=== PATIENT | male | born 1990 | race African-American/Black ===

== ENCOUNTER 2018-03-26 11:53 | Observation (INO) | payer OTHER ==
[~2018-03-26 11:53] MED LIST: LIDOCAINE 2% INJ-PF (20 MG/ML) 2 ML AMPUL ONE; ONDANSETRON HCL INJ/PF 4 MG/2 ML SDV ONE
[2018-03-26] MEDS ORDERED: CLINDAMYCIN 600 MG/D5W RTU 600 MG/50 ML RTUPB IV SCH (14:00)
[2018-03-26] MEDS ORDERED: HYDROMORPHONE HCL INJ/PF 2 MG/ML AMPULE IV ONE ×2 (14:02→16:05)
[2018-03-26 14:41] LABS: ABSOLUTE LYMPHOCYTES (AUTO) 0.8 10^3/uL (0.5-4.7); ABSOLUTE NEUT (AUTO) 5.1 10^3/uL (1.7-8.2); BASOPHILS % (AUTO) 0.2 % (0-2); EOSINOPHILS % (AUTO) 0.2 % (0-6); HEMATOCRIT 37.7 % (37.9-51.0); HEMOGLOBIN 12.1 g/dL (13.5-17.0); MEAN CORPUSCULAR VOLUME 75 fl (80-97); MONOCYTES % (AUTO) 13.9 % (3-13); PLATELET COUNT 288 10^3/uL (150-450); RED BLOOD COUNT 5.02 10^6/uL (4.35-5.55); RED CELL DISTRIBUTION WIDTH 14.7 % (11.5-14.0); SEGMENTED NEUTROPHILS % (AUTO) 73.7 % (42-78); TOTAL CELLS COUNTED % (AUTO) 100 %; WHITE BLOOD COUNT 6.9 10^3/uL (4.0-10.5)
[2018-03-26 14:59] LABS: ALANINE AMINOTRANSFERASE 29 U/L (21-72); ALBUMIN 4.2 g/dL (3.5-5.0); ALKALINE PHOSPHATASE 65 U/L (38-126); ANION GAP 11 (5-19); ASPARTATE AMINO TRANSFERASE 23 U/L (17-59); BILIRUBIN,DIRECT 0.3 mg/dL (0.0-0.4); BILIRUBIN,TOTAL 0.4 mg/dL (0.2-1.3); BLOOD UREA NITROGEN 7 mg/dL (7-20); CALCIUM 9.5 mg/dL (8.4-10.2); CARBON DIOXIDE 32 mmol/L (22-30); CHLORIDE 100 mmol/L (98-107); GLUCOSE 78 mg/dL (75-110); POTASSIUM 3.3 mmol/L (3.6-5.0); SODIUM 143.4 mmol/L (137-145); TOTAL PROTEIN 7.2 g/dL (6.3-8.2)
--- NOTE | 2018-03-26 15:26 | RADIOLOGY REPORT (SQ) ---
EXAM DESCRIPTION: CT ABD/PELVIS WITH IV ONLY COMPLETED DATE/TIME: 03/26/2018 3:00 pm REASON FOR STUDY: right buttock pain, rectal pain, abscess? COMPARISON: None. TECHNIQUE: CT scan of the abdomen and pelvis performed using helical scanning technique with dynamic intravenous contrast injection. No oral contrast. Images reviewed with lung, soft tissue, and bone windows. Reconstructed coronal and sagittal MPR images reviewed. Delayed images for evaluation of the urinary system also acquired. All images stored on PACS. All CT scanners at this facility use dose modulation, iterative reconstruction, and/or weight based d osing when appropriate to reduce radiation dose to as low as reasonably achievable (ALARA). [facility]: Dose Right [facility]: CareDose [facility]: Dose Right [facility]: Teradose 4D [facility]: [employer] CONTRAST TYPE AND DOSE: contrast/concentration: Isovue 370.00 mg/ml; Total Contrast Delivered: 90.0 ml; Total Saline Delivered: 70.0 ml RENAL FUNCTION: None required. The patient is less than 50 years old. RADIATION DOSE: CT Rad equipment meets quality standard of care and radiation dose reduction techniq ues were employed. CTDIvol: 7.1 - 9.8 mGy. DLP: 949 mGy-cm.. LIMITATIONS: None. FINDINGS: There is a 3.7 cm AP x 3 cm transverse x 3 cm craniocaudad right perirectal abscess presen t. This is best shown on axial image 99, sagittal image 50 and coronal image 39. Minimal inflammati on is seen extending up into the right ischiorectal fossa fat. No bulky pelvic or inguinal lymph nodes. No free pelvic fluid. LOWER CHEST: No significant findings. No nodules or infiltrates. LIVER: Normal size. No masses. No dilated ducts. SPLEEN: Normal size. No focal lesions. PANCREAS: No masses. No significant calcifications. No adjacent inflammation or peripancreatic fluid collections. Pancreatic duct not dilated. GALLBLADDER: No identified stones by CT criteria. No inflammatory changes to suggest cholecystitis. ADRENAL GLANDS: No significant masses or asymmetry. RIGHT KIDNEY AND URETER: No solid masses. No significant calcifications. No hydronephrosis or hyd roureter. LEFT KIDNEY AND URETER: No solid masses. No significant calcifications. No hydronephrosis or hydr oureter. AORTA AND VESSELS: No aneurysm. No dissection. Renal arteries, SMA, celiac without stenosis. RETROPERITONEUM: No retroperitoneal adenopathy, hemorrhage or masses. BOWEL AND PERITONEAL CAVITY: No masses or inflammatory changes. No free fluid or peritoneal masses. APPENDIX: Normal. PELVIS: 3.7 x 3 x 3 cm right perirectal abscess. Bladder, prostate unremarkable. No free pelvic flu id. No pelvic adenopathy. ABDOMINAL WALL: No masses. No hernias. BONES: No significant or acute findings. OTHER: No other significant finding. IMPRESSION: 3.7 x 3 x 3 cm right perirectal abscess. TECHNICAL DOCUMENTATION: JOB ID: [id number] Quality ID # [id number]: Final reports with documentation of one or more dose reduction techniques (e.g., Au tomated exposure control, adjustment of the mA and/or kV according to patient size, use of iterative reconstruction technique) 2010 [employer]- All Rights Reserved Reading location - IP/workstation name: [email or web address]
[2018-03-26] MEDS ORDERED: NORMAL SALINE 1000 ML 1,000 ML IV PRN ×2 (15:48→21:41)
--- NOTE | 2018-03-26 15:55 | ER Document Report ---
ED GI Bleed / Rectal Pain - General Chief Complaint: Hemorrhoids Stated Complaint: POSSIBLE HEMORRHOIDS Time Seen by Provider: 03/26/18 13:09 Mode of Arrival: Ambulatory Information source: Patient Notes: Patient is a 28-year-old male who presents to the ER today for buttock pain times approximately 1 month. Patient states that he just took a trip through multiple states and was sitting in a car for long periods of time, so the buttock pain worsened. Patient states that he is here today because he can barely even walk due to the pain. Patient went to urgent care a few days ago and was told that he had a hemorrhoid. He has not been doing anything for this , was not given anything, just told to go to the emergency department if it worsened. Patient denies any history of hemorrhoids before. He denies any fevers or chills. He states that it does hurt to have a bowel movement, he has daily bowel movements that are normal, no diarrhea or hard stools. He has seen no blood in his stool. - Related Data Allergies/Adverse Reactions: No Known Allergies Allergy (Unverified 03/26/18 11:56) Past Medical History - General Information source: Patient - Social History Smoking Status: Current Some Day Smoker Frequency of alcohol use: None Drug Abuse: Marijuana Family History: Reviewed & Not Pertinent Patient has suicidal ideation: No Patient has homicidal ideation: No Pulmonary Medical History: Reports: Hx Asthma Renal/ Medical History: Denies: Hx Peritoneal Dialysis Review of Systems - Review of Systems Constitutional: No symptoms reported EENT: No symptoms reported Cardiovascular: No symptoms reported Respiratory: No symptoms reported Gastrointestinal: See HPI Genitourinary: No symptoms reported Male Genitourinary: No symptoms reported Musculoskeletal: No symptoms reported Skin: No symptoms reported Hematologic/Lymphatic: No symptoms reported Neurological/Psychological: No symptoms reported Physical Exam - Vital signs Vitals: Temp Pulse Resp BP Pulse Ox 98.9 F 93 16 107/59 L 95 03/26/18 12:05 03/26/18 12:05 03/26/18 12:05 03/26/18 12:05 03/26/18 12:05 - Notes Notes: PHYSICAL EXAMINATION: GENERAL: Uncomfortable appearing, lying on left side in position, but in no acute distress. HEAD: Atraumatic, normocephalic. EYES: Pupils equal round and reactive to light, extraocular movements intact, sclera anicteric, conjunctiva are normal. NECK: Normal range of motion, supple without lymphadenopathy LUNGS: CTAB and equal. No wheezes rales or rhonchi. HEART: Regular rate and rhythm without murmurs ABDOMEN: Soft, no tenderness. No guarding, no rebound BACK: no vertebral tenderness, normal ROM Rectal: No hemorrhoids noted, internal or external, probable perirectal abscess noted with induration to the right buttock near the anus, exquisitely tender GI/: no CVA tenderness EXTREMITIES: Normal range of motion, no pitting edema. No cyanosis. NEUROLOGICAL: Cranial nerves grossly intact. Normal sensory/motor exams. PSYCH: Normal mood, normal affect. SKIN: Warm, Dry, normal turgor, no rashes or lesions noted Course - Re-evaluation Re-evalutation: 03/26/18 16:17 CT of the abdomen and pelvis with IV contrast shows a perirectal abscess. Patient started on clindamycin, given IV fluids and pain medication, resting comfortably at this time. WBC normal, pt has 3.7 x 3 x 3 perirectal abscess, Dr. Nova accepts for OR at this time 03/29/18 16:33 - Vital Signs Vital signs: Temp Pulse Resp BP Pulse Ox 98.2 F 79 12 107/59 L 97 03/27/18 12:00 03/27/18 12:00 03/27/18 12:00 03/27/18 12:00 03/27/18 12:00 - Laboratory Result Diagrams: 03/27/18 06:13 03/27/18 06:13 Laboratory results interpreted by me: 03/26/18 03/26/18 14:00 14:00 Hgb 12.1 L Hct 37.7 L MCV 75 L MCH 24.0 L RDW 14.7 H Lymphocytes % 12.0 L Monocytes % 13.9 H Potassium 3.3 L Carbon Dioxide 32 H Discharge - Discharge Clinical Impression: Haylie-rectal abscess Condition: Stable Disposition: ADMITTED INPATIENT Admitting Provider: Surgicalist Adam nova Unit Admitted: OR
[2018-03-26] MEDS ORDERED: CEFOXITIN 1 GM/D5W RTU 50 ML IV SCH (16:00)
--- NOTE | 2018-03-26 16:09 | PDOC H&P ---
History of Present Illness Patient complains of: right perirectal abscess History of Present Illness: DIANA PLAZA is a 27 year old male with a one week hx of right perianal pain for [address] scan of the pelvis has been done and it reveals a right perirectal abscess measuring approximately 3 cm in diameter. The patient has a hx of chronic, well controlled myelocytic leukemia and he takes 1 tab of chemotherapeutic agent each day. Past Medical History Pulmonary Medical History: Reports: Asthma Social History Smoking Status: Current Some Day Smoker Family History Family History: Malignancy - granmother Parental Family History Reviewed: No Children Family History Reviewed: No Sibling(s) Family History Reviewed.: No Medication/Allergy Allergies/Adverse Reactions: No Known Allergies Allergy (Unverified 03/26/18 11:56) Physical Exam Vital Signs: Temp Pulse Resp BP Pulse Ox 98.9 F 93 16 107/59 L 95 03/26/18 12:05 03/26/18 12:05 03/26/18 12:05 03/26/18 12:05 03/26/18 12:05 Intake & Output 03/25/18 03/26/18 03/27/18 06:59 06:59 06:59 Weight 83.9 kg General appearance: PRESENT: no acute distress, cooperative Head exam: PRESENT: atraumatic Eye exam: PRESENT: EOMI Mouth exam: PRESENT: neck supple Respiratory exam: PRESENT: clear to auscultation gaye Cardiovascular exam: PRESENT: RRR GI/Abdominal exam: PRESENT: soft Rectal exam: PRESENT: other - tender right perianal mass Results Laboratory Results: 03/26/18 14:00 03/26/18 14:00 03/26/18 03/26/18 14:00 14:00 WBC 6.9 RBC 5.02 Hgb 12.1 L Hct 37.7 L MCV 75 L MCH 24.0 L MCHC 32.0 RDW 14.7 H Plt Count 288 Seg Neutrophils % 73.7 Lymphocytes % 12.0 L Monocytes % 13.9 H Eosinophils % 0.2 Basophils % 0.2 Absolute Neutrophils 5.1 Absolute Lymphocytes 0.8 Absolute Monocytes 1.0 Absolute Eosinophils 0.0 Absolute Basophils 0.0 Sodium 143.4 Potassium 3.3 L Chloride 100 Carbon Dioxide 32 H Anion Gap 11 BUN 7 Creatinine 1.02 Est GFR ( Amer) > 60 Est GFR (Non-Af Amer) > 60 Glucose 78 Calcium 9.5 Total Bilirubin 0.4 AST 23 ALT 29 Alkaline Phosphatase 65 Total Protein 7.2 Albumin 4.2 Impressions: Abdomen/Pelvis CT 03/26/18 13:10 IMPRESSION: 3.7 x 3 x 3 cm right perirectal abscess. Assessment & Plan - Diagnosis (1) Haylie-rectal abscess Is this a current diagnosis for this admission?: Yes - Plan Summary Plan Summary: A/ right perianal pain, nausea x 1 week tender area in the right perianum CT scan of the pelvis significant or right perirtectal abscess P/ I&D of right perirectal abscess Clinda/Mefoxin abx Replace K with 40 mEq IVPB Agressive IV hydration
[2018-03-26] MEDS ORDERED: NORMAL SALINE 1000 ML 1,000 ML IV ONE (16:15)
[2018-03-26 16:28] LABS: APPEARANCE,URINE CLEAR; BILIRUBIN,URINE NEGATIVE (NEGATIVE); COLOR,URINE YELLOW; GLUCOSE, URINE NEGATIVE (NEGATIVE); KETONES,URINE NEGATIVE (NEGATIVE); LEUKOCYTE ESTERASE,URINE NEGATIVE (NEGATIVE); NITRITE,URINE NEGATIVE (NEGATIVE); PROTEIN,URINE NEGATIVE (NEGATIVE); URINE SPECIFIC GRAVITY 1.013; UROBILINOGEN,URINE NEGATIVE mg/dL (<2.0)
[2018-03-26] MEDS: POTASSI CL 20 MEQ/50 ML RIDER 20 MEQ/50 ML RTUPB IV SCH ×2 (17:02→23:13)
[2018-03-26] MEDS ORDERED: DEXTROSE 5% IV SCH (18:00)
[2018-03-26] MEDS ORDERED: WATER IV SCH (18:00)
[2018-03-26] MEDS ORDERED: CEFOXITIN SODIUM IV SCH (18:00)
[2018-03-26] MEDS ORDERED: ONDANSETRON 4 MG TAB.RAPDIS ONE (19:22)
[2018-03-26] MEDS ORDERED: FENTANYL CITRATE INJ/PF 250 MCG/5 ML AMPULE ONE (19:30)
[2018-03-26] MEDS ORDERED: MIDAZOLAM 2 MG/2 ML INJ ONE (19:56)
[2018-03-26] MEDS ORDERED: EPHEDRINE SULFATE INJ 50 MG/1 ML AMPULE ONE (19:57)
[2018-03-26] MEDS ORDERED: PROPOFOL INJ 200 MG/20 ML VIAL IV ONE (19:57)
[2018-03-26] MEDS ORDERED: DIPHENHYDRAMINE HCL 50 MG/ML VIAL IV PRN (20:43)
[2018-03-26] MEDS ORDERED: ONDANSETRON HCL INJ/PF 4 MG/2 ML SDV IV PRN ×2 (20:43→21:42)
[2018-03-26] MEDS ORDERED: MEPERIDINE HCL/PF INJ 25 MG/1 ML DISP.SYRIN IV PRN (20:43)
[2018-03-26] MEDS ORDERED: PROMETHAZINE HCL INJ 25 MG/1 ML VIAL IV PRN (20:43)
[2018-03-26] MEDS ORDERED: FENTANYL CITRATE INJ/PF 100 MCG/2 ML AMPUL IV PRN ×3 (20:43)
[2018-03-26] MEDS: FENTANYL CITRATE INJ/PF 100 MCG/2 ML AMPUL ONE ×2 (21:31→21:44)
--- NOTE | 2018-03-26 21:33 | Operative Report ---
Nonrecallable Operative Report DATE OF SURGERY: 03/26/18 PREOPERATIVE DIAGNOSIS: right extrasphincteric perirectal abscess POSTOPERATIVE DIAGNOSIS: same OPERATION: rigid proctosigmoidoscopy. I&D perirectal abscess. rectal fistulotomy SURGEON: ANDREIA KISER ANESTHESIA: GA TISSUE REMOVED OR ALTERED: n/a COMPLICATIONS: none ESTIMATED BLOOD LOSS: < 15 mL INTRAOPERATIVE FINDINGS: large right, extrasphincteric perirectal abscess PROCEDURE: see dictation
[2018-03-26] MEDS ORDERED: MORPHINE SULFATE 10 MG/ML INJ IV PRN (21:43)
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
[2018-03-27] MEDS: FAMOTIDINE INJ/PF 20 MG/2 ML SDV IV SCH ×2 (00:13→09:02)
[2018-03-27] MEDS: MORPHINE SULFATE 10 MG/ML INJ IV PRN ×5 (00:15→06:34)
[2018-03-27] MEDS ORDERED: MORPHINE SULFATE 10 MG/ML INJ IV PRN (00:16)
[2018-03-27] MEDS ORDERED: CEFOXITIN INJ 1 GM VIAL ONE (02:27)
[2018-03-27] MEDS: CEFOXITIN SODIUM 2 GM in NORMAL SALINE 100 ML IV SCH ×2 (03:00→09:00)
[2018-03-27 06:32] LABS: HEMOGLOBIN 11.6 g/dL (13.5-17.0); MEAN CORPUSCULAR HEMOGLOBIN 23.9 pg (27.0-33.4); MEAN CORPUSCULAR HGB CONC 32.2 g/dL (32.0-36.0); MEAN CORPUSCULAR VOLUME 74 fl (80-97); PLATELET COUNT 254 10^3/uL (150-450); RED BLOOD COUNT 4.84 10^6/uL (4.35-5.55); RED CELL DISTRIBUTION WIDTH 14.8 % (11.5-14.0); WHITE BLOOD COUNT 8.9 10^3/uL (4.0-10.5)
[2018-03-27 06:44] LABS: ANION GAP 12 (5-19); BLOOD UREA NITROGEN 6 mg/dL (7-20); CALCIUM 9.3 mg/dL (8.4-10.2); CARBON DIOXIDE 27 mmol/L (22-30); CHLORIDE 108 mmol/L (98-107); GLUCOSE 111 mg/dL (75-110); SODIUM 146.5 mmol/L (137-145)
[2018-03-27 06:52] LABS: POTASSIUM 4.5 mmol/L (3.6-5.0)
[2018-03-27] MEDS ORDERED: TRAMADOL HCL 50 MG TABLET PO PRN (08:26)
[2018-03-27] MEDS ORDERED: DOCUSATE SODIUM 100 MG CAPSULE PO SCH (10:00)
[2018-03-27] MEDS ORDERED: ENOXAPARIN SODIUM INJ 40 MG/0.4 ML DISP.SYRIN SUBCUT SCH (10:00)
[2018-03-27 13:21] VITALS: BP 107/59
--- NOTE | 2018-03-27 13:27 | PDOC PROGRESS REPORT ---
Subjective Progress Note for:: 03/27/18 Subjective:: c/o perirectal incisional pain Reason For Visit: PERIRECTAL ABSCESS Physical Exam Vital Signs: Temp Pulse Resp BP Pulse Ox 98.2 F 79 12 122/65 97 03/27/18 11:52 03/27/18 11:52 03/27/18 11:52 03/27/18 11:52 03/27/18 11:52 Intake & Output 03/26/18 03/27/18 03/28/18 06:59 06:59 06:59 Intake Total 3420 236 Output Total 3570 800 Balance -150 -564 Weight 87.4 kg General appearance: PRESENT: no acute distress, cooperative Rectal exam: PRESENT: other - soft right perianal area, [place] drain in place, minimal drainage no odor Results Laboratory Results: 03/27/18 06:13 03/27/18 06:13 03/27/18 03/27/18 06:13 06:13 WBC 8.9 RBC 4.84 Hgb 11.6 L Hct 36.0 L MCV 74 L MCH 23.9 L MCHC 32.2 RDW 14.8 H Plt Count 254 Sodium 146.5 H Potassium 4.5 D Chloride 108 H Carbon Dioxide 27 Anion Gap 12 BUN 6 L Creatinine 0.81 Est GFR ( Amer) > 60 Est GFR (Non-Af Amer) > 60 Glucose 111 H Calcium 9.3 Impressions: Abdomen/Pelvis CT 03/26/18 13:10 IMPRESSION: 3.7 x 3 x 3 cm right perirectal abscess. Assessment & Plan - Diagnosis (1) Haylie-rectal abscess Is this a current diagnosis for this admission?: Yes (2) Perirectal abscess Is this a current diagnosis for this admission?: Yes - Plan Summary Plan Summary: A/ POD#1 after drainage of perirectal abscess and fistulotomy VSS, AF Blood work WNL PE routine postop P/ Home today resume diet, meds, activities return to work in 2 weeks sitz bath 3 times a day shower only until wound is closed and drain is out [place] 5/325 po q6 hours as needed for pain for 2 days only, then Tylenol and Aleve over the counter as needed folr pain Cipro 500 mg po BID x 10 days Flagyl 500 mg po TID x 10 days Follow-up with General Surgery office within 1 week with JUAN M Pool No rectal manipulations (suppositories, temperature probe, etc)
--- NOTE | 2018-03-28 03:35 | DISCHARGE SUMMARY E ---
Discharge Summary NAME: DIANA PLAZA : 1990 AGE: 27Y ADMITTED: 03/26/2018 DISCHARGED: 03/27/2018 FINAL DIAGNOSIS: Perirectal abscess, extrasphincteric. PROCEDURE: On 03/26 the patient underwent incision and drainage of perirectal abscess, rigid proctosigmoidoscopy, and rectal fistulotomy. COMPLICATION: None. HOSPITAL COURSE: This is a healthy 27-year-old male with a history of chronic myelocytic leukemia on daily oral immunosuppressant therapy who presented to the Emergency Room with pain of the right buttock with swelling. His blood work was within normal limits. A CAT scan was done, revealing a large extrasphincteric perirectal abscess. The patient underwent surgery the same evening. He underwent incision and drainage of the abscess, rigid proctosigmoidoscopy, fistulotomy, and placement of Jade drain. The procedure was well tolerated. His postop course was unremarkable. His vital signs remained stable. His white blood cell count the following day was normal. The patient was tolerating p.o. well. He had a sitz bath. Physical exam was unremarkable with decreased swelling of the right buttock and minimal drainage. DISCHARGE ORDERS: The patient was discharged to home on March 27. He was given a followup appointment in the surgery clinic within a week. He was given Cipro 500 mg p.o. twice a day and Flagyl 500 mg p.o. 3 times a day for 10 days. Instructions for sitz bath 3 times a day, shower only. No bath until the wound is closed and drain removed. Snyder 5/325 one p.o. q. 6 hours p.r.n. pain for 2 days, #8, no refills. He was instructed to take Tylenol or Aleve afterwards. He was instructed to resume his medications, regular diet, activities as tolerated. Return to work 2 weeks after his surgery. DICTATING PHYSICIAN: ANDREIA KISER M.D. [id number] PHY#: [id number] ID: [id number] JOB#: [id number] ACCT: [id number] cc:Nigel LOPEZ MD, M.D. [facility], > [facility]
== END 2018-03-27 14:33 | disposition home or self-care (01) ==
LOC: ER 11:53 → EH 16:20 → INTOOBSV 16:20 → 3W 22:26
PROVIDERS: ATTEND Surgery
PROC: 0DJD8ZZ Inspection of Lower Intestinal Tract, Via Natural or Artificial Opening Endoscopic (ICD-10-PCS; 2018-03-26)
PROC: 0D9P8ZX Drainage of Rectum, Via Natural or Artificial Opening Endoscopic, Diagnostic (ICD-10-PCS; principal; 2018-03-26 18:15)
DX: K61.1 Rectal abscess (principal); C92.10 Chronic myeloid leukemia, BCR/ABL-positive, not having achieved remission; F17.200 Nicotine dependence, unspecified, uncomplicated; F12.10 Cannabis abuse, uncomplicated; Z79.899 Other long term (current) drug therapy
CPT/HCPCS: 99284; 96375; 96365; 36415 ×2; 87040; 87070; 87205; 85025; 85027; 87075; 87077; 80048; 80053; 81001; 74177; 46060; 45300; J2250; J0694 ×2; S0119; J3010 ×2; J2270 ×2; J1170; J2405; J3480; J7030; J2704; J3490; 902

== ENCOUNTER 2018-04-02 17:27 | Emergency (ER) | payer OTHER ==
[2018-04-02 17:34] VITALS: BP 134/98
[2018-04-02] MEDS ORDERED: HYDROMORPHONE HCL INJ/PF 2 MG/ML AMPULE IV ONE (18:55)
[2018-04-02] MEDS ORDERED: ONDANSETRON 4 MG TAB.RAPDIS PO ONE (18:55)
--- NOTE | 2018-04-02 18:59 | ER Document Report ---
ED GI Bleed / Rectal Pain - General Chief Complaint: Rectal Pain Stated Complaint: RECTAL PAIN Time Seen by Provider: 04/02/18 18:18 Mode of Arrival: Ambulatory Information source: Patient TRAVEL OUTSIDE OF THE [place] IN LAST 30 DAYS: No - HPI Patient complains to provider of: Rectal pain Notes: Patient is here with complaints of right-sided rectal pain. The patient was here a week ago was diagnosed with a right-sided perirectal abscess. He was taken to surgery had an I&D performed and had a Jade drain placed. He followed up in the office and had the drain removed. He states that he seemed to be doing well over the last few days he feels like the pain has gotten worse and that the area seems to be getting larger. He denies fever. He denies nausea, vomiting, diarrhea. No abdominal pain. He denies any dysuria or hematuria. No rash. He denies any chest pain or shortness of breath. Patient does have a history of CML, he currently takes an oral chemo medication, but states that his disease is under control. He denies any other complaints at this time. He is currently taking Cipro and Flagyl. - Related Data Allergies/Adverse Reactions: No Known Allergies Allergy (Verified 04/02/18 17:28) Past Medical History - Social History Smoking Status: Never Smoker Chew tobacco use (# tins/day): No Frequency of alcohol use: None Drug Abuse: None Family History: Reviewed & Not Pertinent Patient has suicidal ideation: No Patient has homicidal ideation: No Pulmonary Medical History: Reports: Hx Asthma Renal/ Medical History: Denies: Hx Peritoneal Dialysis Psychiatric Medical History: Reports: Hx Depression Review of Systems - Review of Systems -: Yes All other systems reviewed and negative Physical Exam - Vital signs Vitals: Temp Pulse Resp BP Pulse Ox 98.6 F 86 16 134/98 H 98 04/02/18 17:33 04/02/18 17:33 04/02/18 17:33 04/02/18 17:33 04/02/18 17:33 - Notes Notes: GENERAL: alert, cooperative, nontoxic, no distress. HEAD: normocephalic, atraumatic EYES: conjunctiva pink without discharge, no external redness or swelling. EARS: no external swelling, no external redness NOSE: atraumatic, no external swelling MOUTH/THROAT: mucous membranes moist and pink, posterior pharynx without erythema, swelling, exudate. No trismus or drooling. NECK: soft, supple, full range of motion, no meningismus. CHEST: no distress, lungs clear and equal throughout. No wheezing, rales, rhonchi. CARDIAC: regular rate and rhythm, no murmur, normal capillary refill, normal pulses. No peripheral edema noted. ABDOMEN: Soft, mild tenderness to palpation of the right lower quadrant. No rebound tenderness or guarding. BACK: full range of motion, no CVA tenderness. EXTREMITIES: full range of motion of all extremities. No redness, no swelling. NEURO: alert and oriented x 3, no focal deficits, full range of motion of all extremities. PYSCH: appropriate mood, affect. Patient is cooperative. SKIN: pink, warm, dry, no rash. RECTAL: Indurated abscess to the right perirectal area. There is tenderness at the entrance of the rectum, but not tenderness deep. There is no active drainage at this time. Normal rectal tone. No significant surrounding cellulitis. Course - Re-evaluation Re-evalutation: 04/02/18 20:42 Patient is noted to have a small 7 x 2 mm right-sided perianal abscess on CT scan. White count is unremarkable. I have left a message with the operating room nurse who is currently in the middle of the procedure with Dr. Banerjee the surgeon is rn oncology research at this time. She will pass the message on to him. I will await his return phone call or visit to the emergency department to evaluate the patient. 04/02/18 22:07 Patient is nontoxic-appearing with stable vitals. Patient is here with complaints of right perirectal pain. He was seen here a week ago and was diagnosed with a right-sided perirectal abscess. He seen by surgery and had an I&D and a drain placed. He was seen in the clinic on Thursday. The drain was removed. Is currently on Cipro and Flagyl. He came in today because he was concerned that it was getting worse because it seemed to feel like it was getting larger and was more painful. He is out of his pain medication. He denies any fevers. He does have a history of chronic leukemia and is currently on a daily oral chemotherapeutic medication. He states that his leukemia is under control. He has had no fevers. No vomiting. He did have some mild right -sided abdominal tenderness was noted to have a right perirectal abscess on physical exam. Lab work is unremarkable. Is noted to have a slight elevation in his LFTs. This is very nonspecific at this time. Bilirubin is normal. CT the abdomen and pelvis with IV contrast shows a small perirectal abscess with no other acute abnormalities or complications. Patient was seen and evaluated by Dr. Banerjee of surgery. States that the patient does not require surgical intervention at this time. He recommends that he continues taking his antibiotics and that he does sits baths. He states that the patient will be seen in the clinic again on Thursday. He would like me to write him a prescription for pain medication to go home with until he is seen and evaluated by the surgeons on Thursday. He was instructed to follow-up sooner if he develops worsening pain, high fever, persistent vomiting, increased swelling, or has any further concerns. The patient is noted to have elevated blood pressure during today's emergency department visit. The patient was informed of this finding. The patient was instructed that this may be related to pre-hypertension and requires further evaluation with a primary care provider. The patient has no hypertensive symptoms at this time. The patient's emergency department workup and current diagnosis were explained to the patient and or family. Follow-up instructions were provided. Medications if prescribed were discussed. Instructions for when to return to the emergency department including specific worrisome symptoms were discussed with the patient and/or family. - Vital Signs Vital signs: Temp Pulse Resp BP Pulse Ox 98.6 F 86 16 134/98 H 98 04/02/18 17:33 04/02/18 17:33 04/02/18 17:33 04/02/18 17:33 04/02/18 17:33 - Laboratory Result Diagrams: 04/02/18 19:13 04/02/18 19:13 Laboratory results interpreted by me: 04/02/18 04/02/18 19:13 19:13 Hgb 12.7 L MCV 75 L MCH 23.8 L MCHC 31.8 L RDW 15.0 H AST 112 H ALT 86 H - Diagnostic Test Radiology reviewed: Image reviewed, Reports reviewed - CT of the abdomen and pelvis with IV contrast shows a small right-sided perirectal abscess with no other acute abnormality. Discharge - Discharge Clinical Impression: Perirectal abscess Condition: Stable Disposition: HOME, SELF-CARE Instructions: Abscess (PENDING SALE TO [facility]) Additional Instructions: Take medication as prescribed. Continue taking her Cipro and Flagyl. Do sitz baths 4 times a day. Follow-up with the surgery clinic on Thursday as scheduled. Follow-up sooner for increasing pain, fever, swelling, numbness, tingling, weakness, any further concerns. Your blood pressure was elevated during today's visit. Have this rechecked with your doctor. The medication you were prescribed today may cause drowsiness. Do not drive or operate heavy machinery while taking this medication. Prescriptions: Oxycodone HCl/Acetaminophen [Percocet 5-325 mg Tablet] 1 tab PO Q8H PRN #10 tablet PRN Reason: Forms: Elevated Blood Pressure, Smoking Cessation Education Referrals: [facility] [Provider Group] - Follow up as needed
[2018-04-02 19:33] LABS: ABSOLUTE BASOPHILS # (AUTO) 0.1 10^3/uL (0.0-0.2); ABSOLUTE EOSINOPHILS # (AUTO) 0.3 10^3/uL (0.0-0.6); ABSOLUTE LYMPHOCYTES (AUTO) 1.6 10^3/uL (0.5-4.7); ABSOLUTE MONOCYTES (AUTO) 0.5 10^3/uL (0.1-1.4); ABSOLUTE NEUT (AUTO) 3.1 10^3/uL (1.7-8.2); BASOPHILS % (AUTO) 0.9 % (0-2); EOSINOPHILS % (AUTO) 4.5 % (0-6); HEMOGLOBIN 12.7 g/dL (13.5-17.0); LYMPHOCYTES % (AUTO) 28.8 % (13-45); MEAN CORPUSCULAR HEMOGLOBIN 23.8 pg (27.0-33.4); MEAN CORPUSCULAR HGB CONC 31.8 g/dL (32.0-36.0); MEAN CORPUSCULAR VOLUME 75 fl (80-97); MONOCYTES % (AUTO) 9.7 % (3-13); PLATELET COUNT 396 10^3/uL (150-450); RED BLOOD COUNT 5.34 10^6/uL (4.35-5.55); SEGMENTED NEUTROPHILS % (AUTO) 56.1 % (42-78); TOTAL CELLS COUNTED % (AUTO) 100 %; WHITE BLOOD COUNT 5.6 10^3/uL (4.0-10.5)
[2018-04-02 19:57] LABS: ALANINE AMINOTRANSFERASE 86 U/L (21-72); ALBUMIN 4.3 g/dL (3.5-5.0); ALKALINE PHOSPHATASE 62 U/L (38-126); ANION GAP 12 (5-19); ASPARTATE AMINO TRANSFERASE 112 U/L (17-59); BILIRUBIN,DIRECT 0.3 mg/dL (0.0-0.4); BILIRUBIN,TOTAL 0.3 mg/dL (0.2-1.3); BLOOD UREA NITROGEN 11 mg/dL (7-20); CALCIUM 9.4 mg/dL (8.4-10.2); CARBON DIOXIDE 29 mmol/L (22-30); CHLORIDE 103 mmol/L (98-107); GLUCOSE 87 mg/dL (75-110); POTASSIUM 4.7 mmol/L (3.6-5.0); SODIUM 144.3 mmol/L (137-145); TOTAL PROTEIN 7.2 g/dL (6.3-8.2)
--- NOTE | 2018-04-02 20:36 | RADIOLOGY REPORT (SQ) ---
EXAM DESCRIPTION: CT ABD/PELVIS WITH IV ONLY COMPLETED DATE/TIME: 04/02/2018 8:21 pm REASON FOR STUDY: rectal abscess, increased pain, rlq tenderness COMPARISON: None. TECHNIQUE: CT scan of the abdomen and pelvis performed using helical scanning technique with dynamic intravenous contrast injection. No oral contrast. Images reviewed with lung, soft tissue, and bone windows. Reconstructed coronal and sagittal MPR images reviewed. Delayed images for evaluation of the urinary system also acquired. All images stored on PACS. All CT scanners at this facility use dose modulation, iterative reconstruction, and/or weight based d osing when appropriate to reduce radiation dose to as low as reasonably achievable (ALARA). [facility]: Dose Right [facility]: CareDose [facility]: Dose Right [facility]: Teradose 4D [facility]: [email or web address] CONTRAST TYPE AND DOSE: contrast/concentration: Isovue 370.00 mg/ml; Total Contrast Delivered: 95.0 ml; Total Saline Delivered: 45.0 ml RENAL FUNCTION: None required. The patient is less than 50 years old. RADIATION DOSE: CT Rad equipment meets quality standard of care and radiation dose reduction techniq ues were employed. CTDIvol: 6.8 - 9.7 mGy. DLP: 937 mGy-cm.. LIMITATIONS: None. FINDINGS: LOWER CHEST: No significant findings. No nodules or infiltrates. LIVER: Normal size. No masses. No dilated ducts. SPLEEN: Normal size. No focal lesions. PANCREAS: No masses. No significant calcifications. No adjacent inflammation or peripancreatic fluid collections. Pancreatic duct not dilated. GALLBLADDER: No identified stones by CT criteria. No inflammatory changes to suggest cholecystitis. ADRENAL GLANDS: No significant masses or asymmetry. RIGHT KIDNEY AND URETER: No solid masses. No significant calcifications. No hydronephrosis or hyd roureter. LEFT KIDNEY AND URETER: No solid masses. No significant calcifications. No hydronephrosis or hydr oureter. AORTA AND VESSELS: No aneurysm. No dissection. Renal arteries, SMA, celiac without stenosis. RETROPERITONEUM: No retroperitoneal adenopathy, hemorrhage or masses. BOWEL AND PERITONEAL CAVITY: 7.6 x 2.8 mm soft tissue mass adjacent to the anus on the right with ninfa tral low density. Compatible with small perianal abscess. APPENDIX: Not visualized. PELVIS: No mass. No free fluid. Normal bladder. ABDOMINAL WALL: No masses. No hernias. BONES: No significant or acute findings. OTHER: No other significant finding. IMPRESSION: Small right perianal abscess. TECHNICAL DOCUMENTATION: JOB ID: [id number] Quality ID # [id number]: Final reports with documentation of one or more dose reduction techniques (e.g., Au tomated exposure control, adjustment of the mA and/or kV according to patient size, use of iterative reconstruction technique) 2010 [employer]- All Rights Reserved Reading location - IP/workstation name: [email or web address]
--- NOTE | 2018-04-02 22:04 | PDOC CONSULTATION ---
History of Present Illness Admission Date/PCP: 04/02/18 Patient complains of: Right joseph-anal pains History of Present Illness: DIANA PLAZA is a 28 year old male who had an I&D of right joseph-anal abscess done by Dr Nova a week ago. Pt was seen in the surgical clinic 2 days ago. He is on Cipro and Flagyl and has another appointment date at the surgical clinic on April 06. He is on Chemo therapy for CML. Past 2 days Joseph- anal pains was worse though claims maybe due to the heat since he does not have air conditioning..No fever nor chills. Past Medical History Pulmonary Medical History: Reports: Asthma Psychiatric Medical History: Reports: Depression Hematology History Note: Has CML on Chemotherapy. Past Surgical History Past Surgical History: Reports: Other - I&D of right joseph-anal abscess 03/26/18 Dr Nova Social History Smoking Status: Never Smoker Frequency of Alcohol Use: Rare Hx Recreational Drug Use: No Drugs: None Hx Prescription Drug Abuse: No Family History Family History: Reviewed & Not Pertinent Parental Family History Reviewed: Yes Children Family History Reviewed: No Sibling(s) Family History Reviewed.: No Medication/Allergy Home Medications: Dextroamphetamine/Amphetamine [Adderall Xr 30 mg Capsule] 30 mg PO QAM 03/26/18 Ciprofloxacin HCl [Cipro 500 mg Tablet] 500 mg PO BID #20 tablet 03/27/18 Docusate Sodium [Colace 100 mg Capsule] 100 mg PO BID capsule 03/27/18 Hydrocodone/Acetaminophen [[place] 5-325 mg Tablet] 1 tab PO Q6 PRN #8 tablet Imatinib Mesylate 400 mg PO DAILY 03/27/18 Metronidazole [Flagyl 500 mg Tablet] 500 mg PO TID #30 tablet 03/27/18 Allergies/Adverse Reactions: No Known Allergies Allergy (Verified 04/02/18 17:28) Review of Systems Constitutional: PRESENT: other - no fever/chills Cardiovascular: PRESENT: other - no chest pains/cough Gastrointestinal: PRESENT: other - no abdominal pains Genitourinary: PRESENT: other - no dysuria Neurological: PRESENT: other - no seizures Hematologic/Lymphatic: PRESENT: other - no easy bruising Physical Exam Vital Signs: Temp Pulse Resp BP Pulse Ox 98.6 F 86 16 134/98 H 98 04/02/18 17:33 04/02/18 17:33 04/02/18 17:33 04/02/18 17:33 04/02/18 17:33 Intake & Output 04/01/18 04/02/18 04/03/18 06:59 06:59 06:59 Weight 88.451 kg General appearance: PRESENT: no acute distress Head exam: PRESENT: atraumatic Eye exam: PRESENT: conjunctiva pink Mouth exam: PRESENT: moist Neck exam: PRESENT: full ROM Respiratory exam: PRESENT: clear to auscultation gaye Cardiovascular exam: PRESENT: RRR Pulses: PRESENT: normal radial pulses Vascular exam: PRESENT: normal capillary refill GI/Abdominal exam: PRESENT: soft Rectal exam: PRESENT: other - Has an induration right joseph-anal area at the I&D site but no fluctuation or discharge to the I&D site. This is tender Extremities exam: PRESENT: full ROM Musculoskeletal exam: PRESENT: ambulatory Neurological exam: PRESENT: alert, oriented to person, oriented to place, oriented to time, oriented to situation Psychiatric exam: PRESENT: appropriate affect Skin exam: PRESENT: normal color, warm Results Laboratory Results: 04/02/18 19:13 04/02/18 19:13 04/02/18 04/02/18 19:13 19:13 WBC 5.6 RBC 5.34 Hgb 12.7 L Hct 40.0 MCV 75 L MCH 23.8 L MCHC 31.8 L RDW 15.0 H Plt Count 396 Seg Neutrophils % 56.1 Lymphocytes % 28.8 Monocytes % 9.7 Eosinophils % 4.5 Basophils % 0.9 Absolute Neutrophils 3.1 Absolute Lymphocytes 1.6 Absolute Monocytes 0.5 Absolute Eosinophils 0.3 Absolute Basophils 0.1 Sodium 144.3 Potassium 4.7 Chloride 103 Carbon Dioxide 29 Anion Gap 12 BUN 11 Creatinine 0.87 Est GFR ( Amer) > 60 Est GFR (Non-Af Amer) > 60 Glucose 87 Calcium 9.4 Total Bilirubin 0.3 AST 112 H ALT 86 H Alkaline Phosphatase 62 Total Protein 7.2 Albumin 4.3 Impressions: Abdomen/Pelvis CT 04/02/18 19:00 IMPRESSION: Small right perianal abscess. Assessment & Plan - Diagnosis (1) Post I&D right joseph-anal abscess Is this a current diagnosis for this admission?: Yes - Time Time Spent: 30 to 50 Minutes - Plan Summary Plan Summary: Continue Cipro and Flagyl Start Hot Sitz baths Prescribe Percocet 1 q8 hrs prn pain Continue F/U at surgical clinic 04/06/18 or come back to ER if develops more pains with fever/chills
== END 2018-04-02 22:34 | disposition home or self-care (01) ==
LOC: ER 17:27
DX: K61.1 Rectal abscess (principal); R03.0 Elevated blood-pressure reading, without diagnosis of hypertension; C95.10 Chronic leukemia of unspecified cell type not having achieved remission; Z98.890 Other specified postprocedural states
CPT/HCPCS: 99284; 96374; 36415; 85025; 80053; 74177; S0119; J1170

== ENCOUNTER 2018-04-06 18:33 | Emergency (ER) | payer OTHER ==
[2018-04-06] MEDS ORDERED: FENTANYL CITRATE INJ/PF 100 MCG/2 ML AMPUL IV ONE (19:53)
--- NOTE | 2018-04-06 19:54 | ER Document Report ---
ED Medical Screen (RME) - General Chief Complaint: Bloody Stools Stated Complaint: BLOOD IN STOOL Time Seen by Provider: 04/06/18 19:46 Mode of Arrival: Ambulatory Information source: Patient Notes: 28-year-old male who had a perirectal abscess incised and drained recently resents with complaints of bright red rectal bleeding as well as black tarry stools with mild abdominal pain I have greeted and performed a rapid initial assessment of this patient. A comprehensive ED assessment and evaluation of the patient, analysis of test results and completion of the medical decision making process will be conducted by additional ED providers. PHYSICAL EXAMINATION: GENERAL: Well-appearing, well-nourished and in no acute distress. HEAD: Atraumatic, normocephalic. EYES: Pupils equal round extraocular movements intact, conjunctiva are normal. ENT: Nares patent NECK: Normal range of motion LUNGS: No respiratory distress Musculoskeletal: Normal range of motion NEUROLOGICAL: Normal speech, normal gait. PSYCH: Normal mood, normal affect. SKIN: Warm, Dry, normal turgor, no rashes or lesions noted. TRAVEL OUTSIDE OF THE [place] IN LAST 30 DAYS: No - Related Data Allergies/Adverse Reactions: No Known Allergies Allergy (Verified 04/02/18 17:28) Past Medical History - Social History Chew tobacco use (# tins/day): No Frequency of alcohol use: None Drug Abuse: Marijuana, Prescription drugs Pulmonary Medical History: Reports: Hx Asthma Renal/ Medical History: Denies: Hx Peritoneal Dialysis Psychiatric Medical History: Reports: Hx Depression Past Surgical History: Reports: Other - I&D of right joseph-anal abscess 03/26/18 Dr Nova - Immunizations History of Influenza Vaccine for 07/2017 - 12/2017 Season: Yes Physical Exam - Vital signs Vitals: Temp Pulse Resp BP Pulse Ox 98.9 F 81 16 148/81 H 100 04/06/18 19:03 04/06/18 19:03 04/06/18 19:03 04/06/18 19:03 04/06/18 19:03 Course - Vital Signs Vital signs: Temp Pulse Resp BP Pulse Ox 98.9 F 81 16 148/81 H 100 04/06/18 19:03 04/06/18 19:03 04/06/18 19:03 04/06/18 19:03 04/06/18 19:03
--- NOTE | 2018-04-06 21:13 | ER Document Report ---
ED GI Bleed / Rectal Pain - General Mode of Arrival: Ambulatory Information source: Patient TRAVEL OUTSIDE OF THE [place] IN LAST 30 DAYS: No <JIMBO PRINCE - Last Filed: 04/06/18 22:41> <LAMAR CAGE - Last Filed: 04/06/18 23:02> - General Chief Complaint: Bloody Stools Stated Complaint: BLOOD IN STOOL Time Seen by Provider: 04/06/18 19:46 Notes: Patient is a 28 year old male presenting to the emergency department complaining of black tarry stools onset a few days ago with associated symptoms of chest pain, abdominal cramps, body aches, decreased appetite and diarrhea. Patient states he has had multiple episodes of diarrhea the last several days. Patient states he has taken Ibuprofen and denies any Pepto Bismol use. Of significance, patient presented to the emergency department on 03/26/2018 complaining of rectal bleeding and was found to have a right perirectal abscess and a subsequent I&D was performed. Patient denies any indigestion, foul taste in mouth, or history of ulcers or GI bleed. Patient is currently taking Cipro and Flagyl. (JIMBO PRINCE) - Related Data Allergies/Adverse Reactions: No Known Allergies Allergy (Verified 04/02/18 17:28) Past Medical History - General Information source: Patient - Social History Smoking Status: Never Smoker Chew tobacco use (# tins/day): No Frequency of alcohol use: None Drug Abuse: Marijuana Family History: Reviewed & Not Pertinent Patient has suicidal ideation: No Patient has homicidal ideation: No Pulmonary Medical History: Reports: Hx Asthma Psychiatric Medical History: Reports: Hx Depression Past Surgical History: Reports: Other - I&D of right joseph-anal abscess 03/26/18 Dr Nova <JIMBO PRINCE - Last Filed: 04/06/18 22:41> Review of Systems - Review of Systems Constitutional: No symptoms reported EENT: No symptoms reported Cardiovascular: See HPI, Chest pain Respiratory: No symptoms reported Gastrointestinal: See HPI, Abdominal pain, Diarrhea, Poor appetite, Black stools , Rectal bleeding Genitourinary: No symptoms reported Male Genitourinary: No symptoms reported Musculoskeletal: See HPI Skin: No symptoms reported Hematologic/Lymphatic: No symptoms reported Neurological/Psychological: No symptoms reported -: Yes All other systems reviewed and negative <JIMBO PRINCE - Last Filed: 04/06/18 22:41> Physical Exam <JIMBO PRINCE - Last Filed: 04/06/18 22:41> <LAMAR CAGE - Last Filed: 04/06/18 23:02> - Vital signs Vitals: Temp Pulse Resp BP Pulse Ox 98.9 F 81 16 148/81 H 100 04/06/18 19:03 04/06/18 19:03 04/06/18 19:03 04/06/18 19:03 04/06/18 19:03 - Notes Notes: GENERAL: Alert, interacts well. No acute distress. HEAD: Normocephalic, atraumatic. EYES: Pupils equal, round, and reactive to light. Extraocular movements intact. ENT: Oral mucosa moist, tongue midline. NECK: Full range of motion. Supple. Trachea midline. LUNGS: No respiratory distress. HEART: Regular rate and rhythm. No murmurs, gallops, or rubs. ABDOMEN: Soft, non-tender. Non-distended. Bowel sounds present in all 4 quadrants. EXTREMITIES: Moves all 4 extremities spontaneously. NEUROLOGICAL: Alert and oriented x3. Normal speech. PSYCH: Normal affect, normal mood. SKIN: Warm, dry, normal turgor. No rashes or lesions noted. RECTAL: perianal abscess on the right, minimal drainage. Brown stool. No evidence of fissures or hemorrhages. (JIMBO PRINCE) Course - Laboratory Result Diagrams: 04/06/18 20:12 04/06/18 20:12 <JIMBO PRINCE - Last Filed: 04/06/18 22:41> - Laboratory Result Diagrams: 04/06/18 20:12 04/06/18 22:25 <LAMAR CAGE - Last Filed: 04/06/18 23:02> - Re-evaluation Re-evalutation: 04/06/18 22:38 Patient's fecal occult test was negative. Hemoglobin stable. Patient does have bruising perirectal abscess with sinus. Discussed with patient using warm compresses or hot sitz bathS several times a day. He is to follow-up with his next scheduled appointment with the surgeon. (LAMAR CAGE) - Vital Signs Vital signs: Temp Pulse Resp BP Pulse Ox 98.9 F 81 16 148/81 H 100 04/06/18 19:03 04/06/18 19:03 04/06/18 19:03 04/06/18 19:03 04/06/18 19:03 - Laboratory Laboratory results interpreted by me: 04/06/18 04/06/18 20:12 22:25 Hgb 12.8 L MCV 75 L MCH 23.8 L MCHC 31.8 L RDW 15.0 H Monocytes % 13.2 H Creatinine 1.39 H Discharge <JIMBO PRINCE - Last Filed: 04/06/18 22:41> <LAMAR CAGE - Last Filed: 04/06/18 23:02> - Discharge Clinical Impression: Black stool Condition: Good Disposition: HOME, SELF-CARE Instructions: Stool Blood Test ([facility]) Additional Instructions: If you continue to have black stool please take a sample and follow-up with her primary care physician or emergency department to see if there is blood in this sample. He did not have any blood in the sample obtained today. Your blood levels are the same from previous encounters at this hospital. Scribe Documentation - Scribe Written by Kylee:: Kylee Sanchez, 04/06/2018 21:22 acting as scribe for :: Alverto <JIMBO PRINCE - Last Filed: 04/06/18 22:41>
[2018-04-06 21:24] LABS: ABSOLUTE BASOPHILS # (AUTO) 0.1 10^3/uL (0.0-0.2); ABSOLUTE EOSINOPHILS # (AUTO) 0.1 10^3/uL (0.0-0.6); ABSOLUTE LYMPHOCYTES (AUTO) 1.7 10^3/uL (0.5-4.7); ABSOLUTE MONOCYTES (AUTO) 1.3 10^3/uL (0.1-1.4); ABSOLUTE NEUT (AUTO) 6.5 10^3/uL (1.7-8.2); BASOPHILS % (AUTO) 0.6 % (0-2); EOSINOPHILS % (AUTO) 1.3 % (0-6); HEMATOCRIT 40.1 % (37.9-51.0); HEMOGLOBIN 12.8 g/dL (13.5-17.0); LYMPHOCYTES % (AUTO) 17.4 % (13-45); MEAN CORPUSCULAR HEMOGLOBIN 23.8 pg (27.0-33.4); MEAN CORPUSCULAR HGB CONC 31.8 g/dL (32.0-36.0); MEAN CORPUSCULAR VOLUME 75 fl (80-97); MONOCYTES % (AUTO) 13.2 % (3-13); PLATELET COUNT 380 10^3/uL (150-450); RED BLOOD COUNT 5.36 10^6/uL (4.35-5.55); SEGMENTED NEUTROPHILS % (AUTO) 67.5 % (42-78); TOTAL CELLS COUNTED % (AUTO) 100 %; WHITE BLOOD COUNT 9.7 10^3/uL (4.0-10.5)
[2018-04-06] MEDS ORDERED: HYDROCODONE/ACETAMINOPHEN 5-325 MG (6 TAB/ER DISP) PO PRN (22:40)
[2018-04-06 22:55] LABS: ALANINE AMINOTRANSFERASE 56 U/L (21-72); ALBUMIN 4.3 g/dL (3.5-5.0); ALKALINE PHOSPHATASE 71 U/L (38-126); ANION GAP 11 (5-19); ASPARTATE AMINO TRANSFERASE 35 U/L (17-59); BILIRUBIN,DIRECT 0.3 mg/dL (0.0-0.4); BILIRUBIN,TOTAL 0.3 mg/dL (0.2-1.3); BLOOD UREA NITROGEN 16 mg/dL (7-20); CALCIUM 9.5 mg/dL (8.4-10.2); CARBON DIOXIDE 26 mmol/L (22-30); CHLORIDE 105 mmol/L (98-107); GLUCOSE 90 mg/dL (75-110); LIPASE 54.2 U/L (23-300); POTASSIUM 4.5 mmol/L (3.6-5.0); SODIUM 141.9 mmol/L (137-145); TOTAL PROTEIN 7.2 g/dL (6.3-8.2)
[2018-04-06 23:08] VITALS: BP 128/73
== END 2018-04-06 23:08 | disposition home or self-care (01) ==
LOC: ER 18:33
DX: K61.0 Anal abscess (principal); R19.5 Other fecal abnormalities; R19.7 Diarrhea, unspecified
CPT/HCPCS: 99285; 96374; 36415; 83690; 85025; 82272; 80053; J3010

== ENCOUNTER 2018-06-08 21:51 | Emergency (ER) | payer OTHER ==
[2018-06-08] MEDS ORDERED: NORMAL SALINE 1000 ML 1,000 ML IV ONE ×2 (23:07→23:08)
[2018-06-08] MEDS ORDERED: METOCLOPRAMIDE HCL INJ/PF 10 MG/2 ML SDV IV ONE (23:08)
[2018-06-08] MEDS ORDERED: DIPHENHYDRAMINE HCL 50 MG/ML VIAL IV ONE (23:08)
--- NOTE | 2018-06-08 23:10 | ER Document Report ---
ED General - General Chief Complaint: Nausea/Vomiting Stated Complaint: NAUSEA,VOMITING Time Seen by Provider: 06/08/18 23:01 Mode of Arrival: Ambulatory Information source: Patient Notes: This is a 28-year-old man who presents to the emergency room with nausea, vomiting and diffuse abdominal pain. 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 He states he started getting sick earlier this morning. TRAVEL OUTSIDE OF THE [place] IN LAST 30 DAYS: No - HPI Onset: Just prior to arrival Onset/Duration: Sudden Quality of pain: Achy, Dull Severity: Moderate Pain Level: 2 Associated symptoms: Nausea, Vomiting. denies: Chest pain, Fever, Shortness of breath Exacerbated by: Denies Relieved by: Denies Similar symptoms previously: No Recently seen / treated by doctor: No - Related Data Allergies/Adverse Reactions: No Known Allergies Allergy (Verified 04/02/18 17:28) Past Medical History - General Information source: Patient - Social History Smoking Status: Unknown if Ever Smoked Cigarette use (# per day): No Chew tobacco use (# tins/day): No Frequency of alcohol use: None Drug Abuse: None Lives with: Family Family History: Reviewed & Not Pertinent Patient has suicidal ideation: No Patient has homicidal ideation: No - Past Medical History Cardiac Medical History: Reports: None Pulmonary Medical History: Reports: Hx Asthma Renal/ Medical History: Denies: Hx Peritoneal Dialysis Malignancy Medical History: Reports Other - Leukemia (CML) GI Medical History: Reports: None Musculoskeletal Medical History: Reports None Psychiatric Medical History: Reports: Hx Depression Past Surgical History: Reports: Other - I&D of right joseph-anal abscess 03/26/18 Dr Nova Review of Systems - Review of Systems Constitutional: denies: Chills, Fever EENT: No symptoms reported Cardiovascular: denies: Chest pain, Palpitations, Heart racing Respiratory: denies: Cough, Short of breath, Wheezing Gastrointestinal: Abdominal pain, Nausea, Vomiting. denies: Abdomen distended Genitourinary: No symptoms reported Male Genitourinary: No symptoms reported Musculoskeletal: No symptoms reported Skin: No symptoms reported Hematologic/Lymphatic: No symptoms reported Neurological/Psychological: No symptoms reported Physical Exam - Vital signs Vitals: Resp Pulse Ox 0 L 100 06/08/18 21:57 06/08/18 21:57 Notes: Physical exam: GENERAL: The 8-year-old man, alert and, nauseous, vomiting, appears uncomfortable HEAD: Atraumatic, normocephalic. EYES: Pupils equal round and reactive to light, extraocular movements intact, sclera anicteric, conjunctiva are normal. ENT: TMs normal, nares patent, oropharynx clear without exudates. Moist mucous membranes. NECK: Normal range of motion, supple without obvious mass or JVD. LUNGS: Breath sounds clear to auscultation bilaterally and equal. No wheezes rales or rhonchi. HEART: Regular rate and rhythm without murmurs, rubs or gallops. ABDOMEN: Soft, normoactive bowel sounds. No tenderness to palpation. No guarding, no rebound. No masses appreciated. EXTREMITIES: Normal range of motion, no pitting or edema. No clubbing or cyanosis. NEUROLOGICAL: Cranial nerves II through XII grossly intact. Normal speech, moving all extremities. PSYCH: Normal mood, normal affect. SKIN: Warm, Dry, normal turgor, no rashes or lesions noted. Course - Re-evaluation Re-evalutation: 06/09/18 00:38 Patient given Reglan, Benadryl and IV fluids. He still has nausea but the vomiting has improved. His temperature is 100.1 rectally, blood pressure 120/66 , pulse 92, O2 sat 100% with a respiratory rate of 18. 06/09/18 03:20 Repeat exam: Patient states he feels better. He is tolerating macy vincent. His repeat abdominal exam is soft and nontender. He does have bowel sounds. He has not vomited any further. He states he feels that he is good enough to go home and I will give him some Reglan to go home with. - Vital Signs Vital signs: Temp Pulse Resp BP Pulse Ox 99.1 F 15 106/58 L 99 06/09/18 03:00 06/09/18 03:01 06/09/18 03:00 06/09/18 03:01 - Laboratory Result Diagrams: 06/08/18 22:13 06/08/18 22:13 Laboratory results interpreted by me: 06/08/18 06/08/18 22:13 22:13 Hgb 12.0 L MCV 76 L MCH 23.6 L MCHC 31.2 L RDW 15.5 H Seg Neutrophils % 88.7 H Lymphocytes % 6.0 L Absolute Neutrophils 8.8 H Glucose 134 H ALT 20 L - EKG Interpretation by Me Rate: Bradycardia Rhythm: NSR - EKG shows this bradycardia with a ventricular rate of 51, no acute ST-T wave changes. While the T waves do look accentuated, they appear unchanged from an EKG performed November 21, 2017 Critical Care Note - Critical Care Note Total time excluding time spent on procedures (mins): 60 Discharge - Discharge Clinical Impression: Vomiting with nausea Condition: Stable Disposition: HOME, SELF-CARE Instructions: Vomiting ([facility]) Additional Instructions: Recommendations: Rest, drink all amounts of fluid frequently. Advance diet slowly. Take the Reglan as prescribed for nausea. He did have bloods drawn today: Your kidneys, electrolytes, sugar and liver function tests were all normal. Your anemia studies were normal. Your white count was normal. Aloe up with your primary care doctor. Return to the emergency room for worsening pain, fever, not tolerating fluids or concerns or getting worse. Prescriptions: Metoclopramide HCl [Reglan 10 mg Tablet] 1 - 2 tab PO ASDIR PRN #25 tablet PRN Reason: Forms: Return to Work
[2018-06-08 23:31] LABS: ABSOLUTE EOSINOPHILS # (AUTO) 0.1 10^3/uL (0.0-0.6); ABSOLUTE LYMPHOCYTES (AUTO) 0.6 10^3/uL (0.5-4.7); ABSOLUTE MONOCYTES (AUTO) 0.4 10^3/uL (0.1-1.4); ABSOLUTE NEUT (AUTO) 8.8 10^3/uL (1.7-8.2); BASOPHILS % (AUTO) 0.2 % (0-2); EOSINOPHILS % (AUTO) 0.8 % (0-6); HEMATOCRIT 38.6 % (37.9-51.0); MEAN CORPUSCULAR HEMOGLOBIN 23.6 pg (27.0-33.4); MEAN CORPUSCULAR HGB CONC 31.2 g/dL (32.0-36.0); MEAN CORPUSCULAR VOLUME 76 fl (80-97); MONOCYTES % (AUTO) 4.3 % (3-13); PLATELET COUNT 256 10^3/uL (150-450); RED CELL DISTRIBUTION WIDTH 15.5 % (11.5-14.0); SEGMENTED NEUTROPHILS % (AUTO) 88.7 % (42-78); TOTAL CELLS COUNTED % (AUTO) 100 %; WHITE BLOOD COUNT 9.9 10^3/uL (4.0-10.5)
[2018-06-08 23:46] LABS: VENOUS BLOOD BASE EXCESS -0.8 mmol/L; VENOUS BLOOD HCO3 25.2 mmol/L (20-32); VENOUS BLOOD PCO2 47.2 mmHg (35-63); VENOUS BLOOD PH 7.35 (7.30-7.42)
[2018-06-08 23:51] LABS: ALANINE AMINOTRANSFERASE 20 U/L (21-72); ALBUMIN 4.6 g/dL (3.5-5.0); ALKALINE PHOSPHATASE 57 U/L (38-126); ANION GAP 10 (5-19); ASPARTATE AMINO TRANSFERASE 55 U/L (17-59); BILIRUBIN,DIRECT 0.3 mg/dL (0.0-0.4); BILIRUBIN,TOTAL 0.5 mg/dL (0.2-1.3); BLOOD UREA NITROGEN 9 mg/dL (7-20); CALCIUM 9.6 mg/dL (8.4-10.2); CARBON DIOXIDE 24 mmol/L (22-30); CHLORIDE 105 mmol/L (98-107); GLUCOSE 134 mg/dL (75-110); LIPASE 56.5 U/L (23-300); POTASSIUM 3.7 mmol/L (3.6-5.0); SODIUM 139.2 mmol/L (137-145); TOTAL PROTEIN 7.7 g/dL (6.3-8.2)
[2018-06-09] MEDS ORDERED: HALOPERIDOL LACTATE INJ 5 MG/1 ML VIAL IV ONE (00:38)
[2018-06-09 03:25] VITALS: BP 106/58
--- NOTE | 2018-06-09 07:34 | EKG REPORT ---
SEVERITY:- OTHERWISE NORMAL ECG - SINUS RHYTHM BORDERLINE LEFT AXIS DEVIATION : Confirmed by: Felice Solorio MD 09-Jun-2018 07:33:32
== END 2018-06-09 03:25 | disposition home or self-care (01) ==
LOC: ER 21:51
DX: R11.2 Nausea with vomiting, unspecified (principal); R10.84 Generalized abdominal pain; J45.909 Unspecified asthma, uncomplicated; R00.1 Bradycardia, unspecified; Z85.6 Personal history of leukemia
CPT/HCPCS: 93005; 99285; 96361; 96374; 96375; 36415; 83690; 85025; 80053; 82803; 93010; J1200; J1630; J2765; J7030

== ENCOUNTER 2018-09-12 22:07 | Emergency (ER) | payer SELFPAY ==
[2018-09-12] MEDS ORDERED: DEXAMETHASONE SOD PHOS INJ 10 MG/1 ML VIAL IM ONE (23:07)
--- NOTE | 2018-09-12 23:14 | ER Document Report ---
ED Respiratory Problem - General Chief Complaint: Cough Stated Complaint: COUGH,CONGESTION Time Seen by Provider: 09/12/18 23:00 Mode of Arrival: Ambulatory Information source: Patient Notes: Patient is a well-nourished well-developed 20-year-old male comes to the emergency room complaining of congestion runny nose cough and overall feeling bad. Patient states that it started approximately 5 days ago with congestion and runny nose and developed a cough about 2 days ago and since that time is gotten worse with coughing almost constantly and increasing when he lays down. Patient smokes cigarettes occasionally [place] the [employer]. He has been around his kids that have been sick with congested nose is not runny and coughs. He denies any fevers. He just feels miserable and is having a little trouble breathing. Feels like he can get a good breath in because his nose is so congested. TRAVEL OUTSIDE OF THE [place] IN LAST 30 DAYS: No - HPI Patient complains to provider of: Asthma, Cough, Hurts to breath Onset: Last week Duration: Continuous, Worse/persistent Initiating Event: URI Quality of pain: Achy Severity: Mild Pain Level: 1 Short of Breath: Mild Chest pain/discomfort: Constant Cough: Nonproductive Associated symptoms: Congestion, Cough, Hoarseness, Runny nose, Sinus pain/ pressure, Sore Throat, Wheezing Worsened by: Laying flat Similar symptoms previously: No Recently seen / treated by doctor: No - Related Data Allergies/Adverse Reactions: No Known Allergies Allergy (Verified 04/02/18 17:28) Past Medical History - General Information source: Patient - Social History Smoking Status: Current Some Day Smoker Cigarette use (# per day): Yes - 1-2 cigarettes every so often. Chew tobacco use (# tins/day): No Smoking Education Provided: Yes Frequency of alcohol use: None Drug Abuse: None Lives with: Family Family History: Reviewed & Not Pertinent Pulmonary Medical History: Reports: Hx Asthma Renal/ Medical History: Denies: Hx Peritoneal Dialysis Psychiatric Medical History: Reports: Hx Depression Past Surgical History: Reports: Other - I&D of right joseph-anal abscess 03/26/18 Dr Nova Review of Systems - Review of Systems Constitutional: No symptoms reported EENT: Nose congestion, Sinus pressure, Throat pain Cardiovascular: No symptoms reported Respiratory: See HPI, Cough, Wheezing Gastrointestinal: No symptoms reported Genitourinary: No symptoms reported Male Genitourinary: No symptoms reported Musculoskeletal: No symptoms reported Skin: No symptoms reported Hematologic/Lymphatic: No symptoms reported Neurological/Psychological: No symptoms reported -: Yes All other systems reviewed and negative Physical Exam - Vital signs Vitals: Temp Pulse Resp BP Pulse Ox 98.6 F 101 H 20 138/82 H 97 09/12/18 22:28 09/12/18 22:28 09/12/18 22:28 09/12/18 22:28 09/12/18 22:28 Interpretation: Hypertensive, Tachycardic - Notes Notes: PHYSICAL EXAMINATION: GENERAL: Patient is a well-nourished well-developed 20-year-old male who is in no apparent distress on physical exam tonight however he does appear moderately ill uncomfortable. He is coughing in between taking breaths. HEAD: Atraumatic, normocephalic. EYES: Pupils equal round and reactive to light, extraocular movements intact, sclera anicteric, conjunctiva are normal. ENT: Examination head and upper airway showed nasal mucosa to be very erythematous and edematous with some greenish rhinorrhea with crusting around the nostrils noted. Also extreme congestion in bilateral nares. Patient also displays some mild tenderness to palpation around the maxillary sinuses frontal sinuses are negative to percussion or palpation. Examination of bilateral ears shows the external canals have some mild cerumen throughout but they do not obscured the vision of the TMs. TMs on bilateral ears show moderate bulging with slight air-fluid levels noted. Examination of the oral cavity shows posterior pharynx to be very erythematous with some drainage noted yellowish green thick in nature. Bilateral tonsils are slightly enlarged with no exudate. Uvula is midline with moderate erythema no exudate. Airway is patent. There is no encroachment upon the uvula at this time. NECK: Normal range of motion, supple however there is noted to be positive anterior cervical lymphadenopathy present to palpation. LUNGS: Auscultation patient's lung chung show he has bilateral breath sounds breath sounds are increased throughout with a faint inspiratory expiratory wheeze noted. There is no rhonchi appreciated on auscultation of the lungs however patient does seem to have some upper airway congestion that clears on coughing. This coupled with the fact that there is drainage in the posterior pharynx coincide with his clearing on cough presentation. HEART: Tachycardic rate and rhythm without murmurs Musculoskeletal: Normal range of motion, no pitting or edema. No cyanosis. NEUROLOGICAL:Normal speech, normal gait. Normal sensory, motor exams PSYCH: Normal mood, normal affect. SKIN: Warm, Dry, normal turgor, no rashes or lesions noted. Course - Re-evaluation Re-evalutation: 09/13/18 00:00 Patient stay in ER was uneventful. Chest x-ray was negative for any acute findings. Believe he is got a viral upper respiratory infection with a wheeze. I may place him on a steroid taper along with some Sudafed and along with some Tylenol 3 for the cough. Also had a little bit of Tessalon Perle to use during the day. - Vital Signs Vital signs: Temp Pulse Resp BP Pulse Ox 98.6 F 101 H 20 138/82 H 97 09/12/18 22:28 09/12/18 22:28 09/12/18 22:28 09/12/18 22:28 09/12/18 22:28 Discharge - Discharge Clinical Impression: Viral upper respiratory infection Condition: Stable Disposition: HOME, SELF-CARE Instructions: Acetaminophen, Fever ([facility]), Upper Respiratory Illness ([facility]), Viral Syndrome ([facility]) Additional Instructions: Abdomen rest. Medication as prescribed. As we did discuss the Tylenol 3 with codeine is a narcotic medication but it would suppress his cough exceptionally well. Just note that it may make you fatigued and tired he should not drive cars or work at heights or run heavy equipment while taking the medication. I am also writing for some Tessalon Perles that will help with anesthetize the cough from inside. Should you have any concerns or problems return to ER for recheck. Use nasal saline 3-4 times a day to keep the nose moist and secretions thinner. Since you do not have a history of hypertension you may try some Afrin nasal spray. This is a [id number] medication that works fantastic however only use it for 2-3 days 2 sprays on each side of the nose before bed and put it up. Do not take it to work with you because you want to use it more and more in the more you use it the more you have to use it in the less effective it is. But it works well to open you up and let you get sleep at night as congested that you are it will let you get ahead of the curve get sleep so you can start healing herself. Increase the fluids extra vitamins are always good. As stated return to ER if any concerns or problems. Prescriptions: Acetaminophen with Codeine [Tylenol #3 Tablet] 1 each PO Q4HP PRN #15 tablet PRN Reason: Prednisone 10 mg PO ASDIR PRN 6 Days #1 tab.ds.pk PRN Reason: Pseudoephedrine HCl [Sudafed 12 Hour] 120 mg PO BID #20 tablet.er Forms: Elevated Blood Pressure, Smoking Cessation Education, Special Work Note Referrals: [facility] [NO LOCAL MD] - Follow up as needed
--- NOTE | 2018-09-12 23:37 | RADIOLOGY REPORT (SQ) ---
EXAM DESCRIPTION: XR CHEST 2 VIEWS COMPLETED DATE/TME: 09/12/2018 23:06 CLINICAL HISTORY: 28 years Male, cough COMPARISON: None. FINDINGS: Increased lung volume, clear parenchyma, normal cardiac silhouette, and intact bony thorax. IMPRESSION: No acute cardiopulmonary findings.
[2018-09-13 00:40] VITALS: BP 130/81
== END 2018-09-13 00:15 | disposition home or self-care (01) ==
LOC: ER 22:07
DX: J06.9 Acute upper respiratory infection, unspecified (principal); B97.89 Other viral agents as the cause of diseases classified elsewhere; R05 Cough; R09.81 Nasal congestion; R09.89 Other specified symptoms and signs involving the circulatory and respiratory systems; R49.0 Dysphonia; F17.210 Nicotine dependence, cigarettes, uncomplicated; J45.909 Unspecified asthma, uncomplicated
CPT/HCPCS: 99283; 96372; 71046; J1100

== ENCOUNTER 2018-09-17 16:12 | Emergency (ER) | payer SELFPAY ==
[2018-09-17] MEDS ORDERED: IPRATROPIUM/ALBUTEROL 0.5-2.5 MG/3 ML AMPUL NEB ONE (17:10)
[2018-09-17] MEDS ORDERED: BENZONATATE 100 MG CAPSULE PO ONE (17:10)
--- NOTE | 2018-09-17 17:18 | ER Document Report ---
ED Respiratory Problem - General Chief Complaint: Productive Cough Stated Complaint: COUGH/NAUSEA Time Seen by Provider: 09/17/18 17:10 Mode of Arrival: Ambulatory Information source: Patient Notes: History of Present Illness Chief Complaint: [cough] Cough quality= [dry], [without] sputum [No] hemoptysis [ 28 years old male was seen here 2 days ago was put on prednisone return back with persistent sore throat and barky cough and coughing leading to pain in the anterior chest wall. With wheezing on and off. No fever chills. Smoker.] History obtained from [patient] Symptoms began: [past few days] Onset: [gradual] Timing: [constant, lasts hours, persists] Intensity: [moderate] Location: [respiratory tract] Radiation: [none] Migration: [none] Aggravating factors: [none] Relieving factors: [none] Review of Systems : All other systems negative as reviewed. CONSTITUTIONAL No Fever. EYES No eye pain. ENT No sore throat CARDIOVASCULAR No chest pain. RESPIRATORY No SOB, No wheezing, No orthopnea, No pedal edema. GI No abdominal pain, no vomiting, no diarrhea. GENITOURINARY No dysuria. SKIN No rash. NEUROLOGIC No headache. MUSCULOSKELETAL No back pain, No calf pain, No calf swelling Physical Exam CONSTITUTIONAL Vital signs reviewed, Patient has normal respiratory rate, Well appearing, Patient appears comfortable, normal stature. HEAD Atraumatic, Normocephalic. EYES Eyes are normal to inspection. ENT Ears normal to inspection, Nose examination normal. Pharyngotonsillar mucosa was erythematous. NECK No jugular venous distention. RESPIRATORY CHEST Bilateral expiratory wheezing Breath sounds [normal], No respiratory distress. CARDIOVASCULAR RRR, No murmurs, Normal S1 S2, No rub, No gallop. ABDOMEN Abdomen is nontender, No masses, Bowel sounds normal, No distension, No peritoneal signs. BACK Normal inspection. UPPER EXTREMITY Inspection normal. LOWER EXTREMITY Inspection normal. NEURO No facial droop, normal speech. SKIN Skin is warm, Skin is dry, Skin is normal color. PSYCHIATRIC Normal affect. TRAVEL OUTSIDE OF THE [place] IN LAST 30 DAYS: No - HPI Notes: Dictated - Related Data Allergies/Adverse Reactions: No Known Allergies Allergy (Verified 09/17/18 16:14) Past Medical History - Social History Smoking Status: Current Some Day Smoker Frequency of alcohol use: Rare Drug Abuse: Marijuana Family History: Reviewed & Not Pertinent Patient has suicidal ideation: No Patient has homicidal ideation: No Pulmonary Medical History: Reports: Hx Asthma Renal/ Medical History: Denies: Hx Peritoneal Dialysis Psychiatric Medical History: Reports: Hx Depression Past Surgical History: Reports: Other - I&D of right joseph-anal abscess 03/26/18 Dr Nova Review of Systems - Review of Systems Notes: Dictated Physical Exam - Vital signs Vitals: Temp Pulse Resp BP Pulse Ox 98.8 F 99 14 132/78 H 99 09/17/18 16:18 09/17/18 16:18 09/17/18 16:18 09/17/18 16:18 09/17/18 16:18 - Notes Notes: Dictated Course - Vital Signs Vital signs: Temp Pulse Resp BP Pulse Ox 98.8 F 99 14 132/78 H 99 09/17/18 16:18 09/17/18 16:18 09/17/18 16:18 09/17/18 16:18 09/17/18 16:18 - Laboratory Result Diagrams: 09/17/18 17:30 Laboratory results interpreted by me: 09/17/18 17:30 Hgb 13.2 L MCV 76 L MCH 24.1 L MCHC 31.9 L RDW 14.6 H Discharge - Discharge Clinical Impression: Pharyngitis Qualifiers: Pharyngitis/tonsillitis etiology: unspecified etiology Qualified Code(s): J02.9 - Acute pharyngitis, unspecified Asthmatic bronchitis Qualifiers: Asthma severity: moderate Asthma persistence: persistent Asthma complication type: with acute exacerbation Qualified Code(s): J45.41 - Moderate persistent asthma with (acute) exacerbation Condition: Fair Disposition: HOME, SELF-CARE Instructions: Sore Throat ([facility]), Bronchitis With Bronchospasm (Wheezing) ([facility]) Prescriptions: Albuterol Sulfate [Proair Hfa Inhalation Aerosol 8.5 gm Mdi] 2 puff IH Q4 PRN # 1 mdi PRN Reason: Amoxicillin 1 tab PO TID #30 tab Fluticasone Propionate [Flovent HFA 220 mcg MDI] 2 puff IH BID #1 mdi
[2018-09-17 17:44] LABS: ABSOLUTE EOSINOPHILS # (AUTO) 0.1 10^3/uL (0.0-0.6); ABSOLUTE MONOCYTES (AUTO) 0.5 10^3/uL (0.1-1.4); ABSOLUTE NEUT (AUTO) 3.6 10^3/uL (1.7-8.2); BASOPHILS % (AUTO) 0.7 % (0-2); EOSINOPHILS % (AUTO) 0.8 % (0-6); HEMATOCRIT 41.4 % (37.9-51.0); HEMOGLOBIN 13.2 g/dL (13.5-17.0); LYMPHOCYTES % (AUTO) 31.6 % (13-45); MEAN CORPUSCULAR HEMOGLOBIN 24.1 pg (27.0-33.4); MEAN CORPUSCULAR HGB CONC 31.9 g/dL (32.0-36.0); MEAN CORPUSCULAR VOLUME 76 fl (80-97); MONOCYTES % (AUTO) 8.7 % (3-13); PLATELET COUNT 343 10^3/uL (150-450); RED BLOOD COUNT 5.47 10^6/uL (4.35-5.55); RED CELL DISTRIBUTION WIDTH 14.6 % (11.5-14.0); SEGMENTED NEUTROPHILS % (AUTO) 58.2 % (42-78); TOTAL CELLS COUNTED % (AUTO) 100 %; WHITE BLOOD COUNT 6.2 10^3/uL (4.0-10.5)
[2018-09-17 18:47] VITALS: BP 158/83
== END 2018-09-17 18:54 | disposition home or self-care (01) ==
LOC: ER 16:12
DX: J45.41 Moderate persistent asthma with (acute) exacerbation (principal); J02.9 Acute pharyngitis, unspecified; R11.0 Nausea; F17.200 Nicotine dependence, unspecified, uncomplicated
CPT/HCPCS: 94640; 99283; 36415; 87070; 87880; 85025; J7620

== ENCOUNTER 2018-09-18 04:20 | Emergency (ER) | payer SELFPAY ==
[2018-09-18] MEDS ORDERED: ONDANSETRON HCL INJ/PF 4 MG/2 ML SDV IV ONE (04:27)
[2018-09-18] MEDS ORDERED: ONDANSETRON HCL INJ/PF 4 MG/2 ML SDV ONE (04:28)
--- NOTE | 2018-09-18 04:35 | ER Document Report ---
ED General - General Chief Complaint: Breathing Difficulty Stated Complaint: SHORTNESS OF BREATH Time Seen by Provider: 09/18/18 04:27 Notes: Patient is a 28-year-old male who presents with complaint of respiratory distress. When the paramedics arrived there firefighters first responders were there first and tried to place him on CPAP. Patient is very anxious and finding them but eventually allowed them to place CPAP on him. Paramedics said he had a large amount of inspiratory and expiratory wheezing. Medics said he was tachypneic to the point where he passed out several times. They gave him breathing treatments which relieved his wheezing on the way here. Patient was seen earlier today and discharged home. He apparently tried to do a breathing treatment at home but did not make it through the breathing treatment. 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 He does have a history of asthma since childhood. He is a smoker. TRAVEL OUTSIDE OF THE [place] IN LAST 30 DAYS: No - Related Data Allergies/Adverse Reactions: No Known Allergies Allergy (Verified 09/18/18 04:25) Past Medical History - Social History Smoking Status: Current Every Day Smoker Frequency of alcohol use: None Drug Abuse: Marijuana Family History: Reviewed & Not Pertinent Pulmonary Medical History: Reports: Hx Asthma Renal/ Medical History: Denies: Hx Peritoneal Dialysis Psychiatric Medical History: Reports: Hx Depression Past Surgical History: Reports: Other - I&D of right joseph-anal abscess 03/26/18 Dr Nova Review of Systems - Review of Systems Notes: My Normal Review Basic REVIEW OF SYSTEMS: CONSTITUTIONAL : Denies fever, chills, or sweats. Denies recent illness. EENT: Denies eye, ear, throat, or mouth pain or symptoms. Denies nasal or sinus congestion. CARDIOVASCULAR: Denies chest pain. RESPIRATORY: Wheezing and difficulty breathing. GASTROINTESTINAL: Denies abdominal pain. Denies nausea, vomiting, or diarrhea. MUSCULOSKELETAL: Denies neck or back pain or joint pain or swelling. SKIN: Denies rash or skin lesions. NEUROLOGICAL: Denies altered mental status or loss of consciousness. Denies headache. Denies weakness or paralysis or loss of use of either side. Denies problems with gait or speech. Denies sensory or motor loss. PSYCHIATRIC: Anxiety ALL OTHER SYSTEMS REVIEWED AND NEGATIVE. Physical Exam - Vital signs Vitals: Pulse 69 09/18/18 04:20 - Notes Notes: General Appearance: On arrival patient is extremely anxious. It is hard to get him to calm down. Soon is a pole of the stretcher next to her bed he is immediately trying to jump off the stretcher onto our bed despite us telling him to wait to be disconnected and have a seatbelt on done. Eventually the patient goes over to her bed and is finding each time they tried to put the BiPAP mask on. They eventually have them hold the BiPAP mask as the patient's oxygenation is normal and is much more calm without it. Vitals: reviewed, See vital signs table. Head: no swelling or tenderness to the head Eyes: PERRL, EOMI, Conjuctiva clear Mouth: No decreasd moisture Throat: No tonsillar inflammation, No airway obstruction, No lymphadenopathy Neck: Supple, no neck tenderness Lungs: No wheezing, No rales, No rhonci, No accessory muscle use, good air exchange bilaterally. Heart: Normal rate, Regular rythm, No murmur, no rub Abdomen: Normal BS, soft, No rigidity, No abdominal tenderness, No guarding, no rebound, no abdominal masses, no organomegaly Extremities: good pulses in all extremities, no swelling or tenderness in the extremities Skin: warm, dry, appropriate color, no rash Neuro: speech clear, oriented x 3, normal affect, responds appropriately to questions. Course - Re-evaluation Re-evalutation: 09/18/18 04:34 Initial evaluation patient is extremely anxious. He is fighting staff me to try to jump from the stretcher onto her bed. He may start fighting when they try to place a BiPAP mask on him. Have him stop placed on BiPAP mask is when I listen to his lung chung are completely clear. His oxygen saturations 100% on room air and the only increased work of breathing he had was when he was fighting the staff. Now that I told him he does not need oxygen he is more calm and his work of breathing is normal, he does not have retractions, and his lung chung are clear. I will not give any further breathing treatments at this time as the patient has no wheezing on exam. We will draw blood work. We will continue to monitor him closely. 09/18/18 04:56 Nurse informed that the patient's oxygen saturation suddenly dropped briefly. She said that she placed him on oxygen because of this and it came right back up to 100%. Went and reevaluate the patient has lung chung are still clear, he has no distress, he looks well, he is on 2 L and his oxygen is 100%. Turn his oxygen to back off to see if he desaturates again to determine whether or not this was an error on the monitor. Patient's heart rate is currently 66 and his blood pressure is 138/63 and he looks well. 09/18/18 05:11 Patient is oxygen has remained 100% with the nasal currently turned off. I do feel that that was probably monitor air earlier. Patient continues to complain of chest pain that is very pleuritic. I did order a d-dimer however they are having difficulty of time resulting it as it is hemolyzed and will have to do redraws. At this time will just go forward with a CTA. The patient continues to complain of this recurrent pain in his chest that is worse with taking a deep breath. I talked to the patient limited further. I informed him that I suspect that he does have some underlying asthma however that his anxiety makes it much worse and the patient actually agrees with me about this. He is now much more calm and continues to do well not have increased work of breathing continues to have clear lung chung and continues to be 100% on room air. 09/18/18 06:06 On reevaluation the patient continues look very well. Is very calm. Lung chung remain clear. Suction is 100%. In sitting and talking with him now he is able to inform you that a lot of baseline depression already. He says that he just found out that his friend overdosed and this made him very anxious and panicked. He agrees that a lot of his breathing issues are anxiety related. I suspect that the episode he had tonight was anxiety related. Based on the report from the paramedics that he had wheezing type sound with inspiration and expiration suggest that maybe he has anxiety induced vocal cord paralysis. This is completely resolved once the patient is calm down. I did a CT of his chest and it is negative. Patient looks well. I feel he is safe to be discharged home after mental health evaluation. Patient agrees with mental health evaluation and would like to speak with somebody about his depression anxiety. I will put in a consult for mental health. I have otherwise when the prescriptions for potassium due to his hyperkalemia. His QTc interval is 426 and therefore I feel it is safe for him to continue to supplement his potassium at home as I do not think she is at risk of significant arrhythmia. Dictation of this chart was performed using voice recognition software; therefore, there may be some unintended grammatical errors. - Vital Signs Vital signs: Temp Pulse Resp BP Pulse Ox 69 24 H 138/63 H 95 09/18/18 04:20 09/18/18 04:21 09/18/18 04:21 09/18/18 04:21 - Laboratory Result Diagrams: 09/18/18 04:25 09/18/18 04:25 Laboratory results interpreted by me: 09/18/18 09/18/18 09/18/18 04:25 04:25 04:25 WBC 15.0 H D Hgb 12.4 L MCV 75 L MCH 23.7 L MCHC 31.8 L RDW 15.0 H Seg Neutrophils % 83.0 H Lymphocytes % 12.1 L Absolute Neutrophils 12.4 H Potassium 3.0 L* Carbon Dioxide 21 L Glucose 179 H Magnesium 2.7 H Discharge - Discharge Clinical Impression: Anxiety, Hypokalemia Dyspnea Qualifiers: Dyspnea type: other forms of dyspnea Qualified Code(s): R06.09 - Other forms of dyspnea Condition: Good Additional Instructions: Your potassium was a little bit low. please take the prescribed potassium and follow up with your doctor this coming week to have your potassium level rechecked. Please use your inhaler every 4 hours as needed for wheezing. Please follow-up with resources and advice that is given to you by mental health in regards to controlling your anxiety. Please stop smoking. Please feel free to return to the ER anytime if your feeling unwell or having difficulty breathing that is not improving with your inhaler. Prescriptions: Potassium Chloride 20 meq PO DAILY #14 capsule.er Forms: Return to Work Referrals: CHRISTOPHER NELSON MD [Primary Care Provider] - 09/20/18
[2018-09-18 04:49] LABS: ABSOLUTE BASOPHILS # (AUTO) 0.1 10^3/uL (0.0-0.2); ABSOLUTE EOSINOPHILS # (AUTO) 0.1 10^3/uL (0.0-0.6); ABSOLUTE LYMPHOCYTES (AUTO) 1.8 10^3/uL (0.5-4.7); ABSOLUTE MONOCYTES (AUTO) 0.6 10^3/uL (0.1-1.4); ABSOLUTE NEUT (AUTO) 12.4 10^3/uL (1.7-8.2); BASOPHILS % (AUTO) 0.5 % (0-2); EOSINOPHILS % (AUTO) 0.6 % (0-6); HEMOGLOBIN 12.4 g/dL (13.5-17.0); LYMPHOCYTES % (AUTO) 12.1 % (13-45); MEAN CORPUSCULAR HEMOGLOBIN 23.7 pg (27.0-33.4); MEAN CORPUSCULAR HGB CONC 31.8 g/dL (32.0-36.0); MEAN CORPUSCULAR VOLUME 75 fl (80-97); MONOCYTES % (AUTO) 3.8 % (3-13); PLATELET COUNT 406 10^3/uL (150-450); RED BLOOD COUNT 5.24 10^6/uL (4.35-5.55); TOTAL CELLS COUNTED % (AUTO) 100 %
[2018-09-18 04:53] LABS: ANION GAP 12 (5-19); BLOOD UREA NITROGEN 8 mg/dL (7-20); CALCIUM 9.4 mg/dL (8.4-10.2); CARBON DIOXIDE 21 mmol/L (22-30); CHLORIDE 105 mmol/L (98-107); GLUCOSE 179 mg/dL (75-110); SODIUM 137.5 mmol/L (137-145)
--- NOTE | 2018-09-18 04:54 | RADIOLOGY REPORT (SQ) ---
EXAM DESCRIPTION: XR CHEST 1 VIEW COMPLETED DATE/TME: 09/18/2018 04:27 CLINICAL HISTORY: 28 years, Male, dyspnea COMPARISON: 09/12/2018 chest NUMBER OF VIEWS: 1 TECHNIQUE: Frontal view chest LIMITATIONS: None. FINDINGS: Heart size is normal. Lungs are clear. No pneumothorax IMPRESSION: Negative chest copyright 2010 [employer]- All Rights Reserved
[2018-09-18] MEDS ORDERED: POTASSIUM CHLORIDE 10 MEQ CAPSULE.ER PO ONE (05:02)
[2018-09-18] MEDS ORDERED: KETOROLAC TROMETHAMINE INJ/PF 30 MG/1 ML SDV IV ONE (05:04)
[2018-09-18] MEDS ORDERED: NORMAL SALINE 1000 ML 1,000 ML IV ONE (05:09)
--- NOTE | 2018-09-18 06:01 | RADIOLOGY REPORT (SQ) ---
EXAM DESCRIPTION: CT CHEST ANGIOGRAPHY WITHOUT THEN WITH IV CONTRAST COMPLETED DATE/TME: 09/18/2018 05:08 CLINICAL HISTORY: 28 years, Male, dyspnea COMPARISON: None. TECHNIQUE: 572 Images stored on PACS. All CT scanners at this facility use dose modulation, iterative reconstruction, and/or weight based dosing when appropriate to reduce radiation dose to as low as reasonably achievable (ALARA). Axial images were obtained with coronal and sagittal MIPS reconstructions. [facility]: Dose Right [facility]: CareDose [facility]: Dose Right [facility]: Teradose 4D [facility]: [employer] LIMITATIONS: None. FINDINGS: The mediastinal vasculature enhances normally. No intraluminal filling defect to suggest pulmonary embolus. Negative for thoracic aortic aneurysm or dissection. No mediastinal or hilar adenopathy. The heart and pericardium are unremarkable. Limited evaluation of upper abdomen unremarkable. Osseous structures grossly intact. No pneumothorax. Visualized airways are patent. Lungs are clear. IMPRESSION: Negative CTA chest TECHNICAL DOCUMENTATION: Quality ID # [id number]: Final reports with documentation of one or more dose reduction techniques (e.g., Automated exposure control, adjustment of the mA and/or kV according to patient size, use of iterative reconstruction technique) copyright 2010 [employer]- All Rights Reserved
[2018-09-18] MEDS ORDERED: ACETAMINOPHEN 325 MG TABLET PO ONE (06:59)
[2018-09-18 07:11] LABS: URINE AMPHETAMINES SCREEN UNCONFIRMED POSITIVE; URINE BARBITURATES SCREEN NEGATIVE; URINE BENZODIAZEPINES SCREEN NEGATIVE; URINE COCAINE SCREEN NEGATIVE; URINE MARIJUANA (THC) SCREEN UNCONFIRMED POSITIVE; URINE METHADONE SCREEN NEGATIVE; URINE PHENCYCLIDINE SCREEN NEGATIVE
--- NOTE | 2018-09-18 07:48 | EKG REPORT ---
SEVERITY:- ABNORMAL ECG - SINUS RHYTHM INCOMPLETE RIGHT BUNDLE BRANCH BLOCK PROLONGED QT INTERVAL TALL T WAVES:? HYPERKALEMIA VERSUS ISCHEMIA. : Confirmed by: Rdaha Madsen MD 18-Sep-2018 07:47:01
[2018-09-18 10:44] VITALS: BP 116/70
--- NOTE | 2018-09-18 15:55 | PSYCHOLOGICAL NOTE ---
Psych Note - Psych Note Date seen by psych provider: 09/18/18 Time seen by psych provider: 08:20 Psych Note: Reason for Consult: anxiety, depression Patient is a 28-year-old male who presents with complaint of respiratory distress. Patient disclosed he came to [facility] ED via EMS because of chest pain and difficulty breathing. He reports that he has history of anxiety depression and knows that he "just lost it" when he had arrived because he found out his friend . He states that his friend overdosed yesterday while the patient was in the emergency department because of bronchitis. He states he knows loss well as when he was 15 years old his father committed suicide. He states that at 17 he was diagnosed with cancer. He continues close that before all that he was a survivor of [place] which is how he ended up in the local area. He reports that his family did all right in [place] they just lost food so he cannot complain. He states that he currently does not have any medications or provider for mental health and would like assistance in finding one. He reports that he is been off medications for a long time because he has a "tendency to abuse them... First time I took it it numb me and I really like the feeling so I would over take it." He continues states that depressed since he never really stayed on long enough to feel if it worked or not. He feels that it would be best for him to go to therapy since he does have a tendency to misuse medications. When discussing thoughts of self -harm he reports that he suffers from chronic suicidal ideation however no such he does not want to follow and his father split steps. He reports that his children are his "rock" and reason for wanting to get better. He reports that he is done a lot of soul searching to realize that he is not his father son and will live. Patient is alert and orientated to person, place, time and circumstance. Mood is euthymic with congruent affect as evidenced by smiling and engaging with clinician. Patient endorses chronic passive suicidal ideation ie no plans means or intent. Patient denies homicidal ideation. Delusions are absent behaviors congruent with an intact reality based presentation I organized and linear thought process. Eye contact is well maintained. Conversational speech was within normal rate, tone and prosody. Intellectual abilities appear to be within average range. Attention and concentration are good. Insight, judgment , impulse control are good. No medication recommendations at this time Uncomplicated bereavement 311 (F32.9) specified depressive disorder per history provided by patient 300.00 (F 41.9) unspecified anxiety disorder per history provided by patient Impression\\plan: Patient is cleared from acute psychiatric services. Patient does not meet IVC criteria (she is 120 2C. Patient had a behavioral outburst stemming from anxiety and depression from finding out his friend overdosed yesterday. He reports that he would like information on local resources for therapy. Patient shows strong insight and judgment in identifying his tendency to overuse or misuse medications so reports that he feels it be more beneficial for him to attend therapy rather than receive medications. Patient was provided a local resource list of area providers including [facility] mobile crisis contact information. Clinician also provided information on the stages of grief which included the information and a handout. Dr. Aquino was consulted care management this patient; attending physicians agree with recommendations and disposition.
== END 2018-09-18 11:23 | disposition home or self-care (01) ==
LOC: ER 04:20
DX: E87.6 Hypokalemia (principal); F41.9 Anxiety disorder, unspecified; F43.21 Adjustment disorder with depressed mood; R06.09 Other forms of dyspnea; C95.91 Leukemia, unspecified, in remission; J45.909 Unspecified asthma, uncomplicated; F17.200 Nicotine dependence, unspecified, uncomplicated
CPT/HCPCS: 93005; 99285; 96361; 96374; 96375; 36415; 83735; 85025; 80048; 80307; 71045; 71275; 93010; J1885; J7030; J2405